=== PATIENT | female | born 1970 | race Caucasian/White ===

== ENCOUNTER → 2024-06-15 12:06 | Outpatient (REF) | payer BC, SELFPAY | LOC: WDC 12:06 | PROVIDERS: ATTENDING PHYSICIAN Physician Assistant Medical | DX: Z12.31 Encounter for screening mammogram for malignant neoplasm of breast (principal) | CPT/HCPCS: 77063; 77067 ==

== ENCOUNTER → 2025-06-17 16:04 | Outpatient (REF) | payer BC, SELFPAY | LOC: WDC 16:04 | PROVIDERS: ATTENDING PHYSICIAN Physician Assistant Medical | DX: Z12.31 Encounter for screening mammogram for malignant neoplasm of breast (principal) | CPT/HCPCS: 77063; 77067 ==